=== PATIENT | female | born 1980 | race Caucasian/White ===

== ENCOUNTER 2017-06-23 17:40 | Emergency (ER) | payer SELFPAY ==
[~2017-06-23] VITALS: Ht 165.1 cm; Wt 70.1 kg
== END 2017-06-23 18:10 | disposition left against medical advice (07) ==
LOC: NED 17:40
DX: Z04.1 Encounter for examination and observation following transport accident (principal)
CPT/HCPCS: 99281

== ENCOUNTER 2017-09-10 21:16 | Emergency (ER) | payer SELFPAY ==
[~2017-09-10] VITALS: Ht 165.1 cm; Wt 68.0 kg
[2017-09-10 21:33] VITALS: BP 124/79; PULSE 108; RESP 16; TEMP 97.7; O2SAT 97
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
[2017-09-10 22:58] LABS: AUTOMATED NEUTROPHIL # 4.4 TH/MM3 (1.8-7.7); BASOPHIL # 0.1 TH/MM3 (0-0.2); BASOPHIL % 0.8 % (0.0-2.0); EOSINOPHIL # 0.3 TH/MM3 (0-0.4); HEMATOCRIT 45.7 % (35.0-46.0); HEMO FLAGS DIFF FINAL; LYMPH % 38.7 % (9.0-44.0); LYMPHOCYTE # 3.4 TH/MM3 (1.0-4.8); MEAN CELL VOLUME 90.8 FL (80.0-100.0); MEAN CORPUSCULAR HEMOGLOBIN 30.9 PG (27.0-34.0); MEAN CORPUSCULAR HGB CONC 34.1 % (32.0-36.0); MONO % 6.7 % (0.0-8.0); NEUT % 49.8 % (16.0-70.0); PLATELET COUNT 221 TH/MM3 (150-450); RED BLOOD COUNT 5.04 MIL/MM3 (4.00-5.30); RED CELL DISTRIBUTION WIDTH 14.9 % (11.6-17.2); WHITE BLOOD COUNT 8.8 TH/MM3 (4.0-11.0)
[2017-09-10 23:16] LABS: ALT (GPT) 24 U/L (10-53); ANION GAP 7 MEQ/L (5-15); AST (GOT) 23 U/L (15-37); BICARBONATE 30.5 MEQ/L (21.0-32.0); BLOOD UREA NITROGEN 7 MG/DL (7-18); CHLORIDE 103 MEQ/L (98-107); GLOMERULAR FILTRATION RATE 99 ML/MIN (>89); MAGNESIUM 2.2 MG/DL (1.5-2.5); POTASSIUM 3.4 MEQ/L (3.5-5.1); SODIUM (NA) 140 MEQ/L (136-145)
[2017-09-10 23:20] LABS: ALKALINE PHOSPHATASE 63 U/L (45-117); CREATINE KINASE 200 U/L (26-192); TOTAL BILIRUBIN ADULT 0.2 MG/DL (0.2-1.0)
[2017-09-10 23:22] LABS: ALCOHOL 300 MG/DL (0-5)
[2017-09-10 23:50] LABS: CKMB 1.7 NG/ML (0.5-3.6)
[2017-09-11 01:54] VITALS: PULSE 97; RESP 16; O2SAT 95
== END 2017-09-11 06:32 | disposition home or self-care (01) ==
LOC: NEPE 21:16
DX: F10.920 Alcohol use, unspecified with intoxication, uncomplicated (principal); F41.9 Anxiety disorder, unspecified; F17.210 Nicotine dependence, cigarettes, uncomplicated
CPT/HCPCS: 80053; 80307; 82550; 82552; 83690; 83735; 84100; 85025; 99283